=== PATIENT | male | born 1965 | race Caucasian/White ===

== ENCOUNTER 2016-06-26 05:32 | Day surgery (SDC) | payer MEDICAID ==
[~2016-06-26] VITALS: Ht 180.3 cm; Wt 100.5 kg
[~2016-06-26 05:32] MED LIST: LAMO100 PO; METF500T4 PO; SERT50TA12 PO; TRAZ-147 PO
[2016-06-26] MEDS ORDERED: SODIUM CHLORIDE 0.9% 1,000 ML IV ONE ×2 (05:53→06:00)
[2016-06-26 06:31] LABS: GLUCOSE,POINT OF CARE 117 MG/DL (70-110)
[2016-06-26] MEDS ORDERED: PROPOFOL 1% 20 ML VIAL IVP ONE (12:00)
== END 2016-06-26 11:00 | disposition home or self-care (01) ==
LOC: SURGERY 05:32
PROVIDERS: ATTEND Specialist
DX: Z12.11 Encounter for screening for malignant neoplasm of colon (principal); K64.8 Other hemorrhoids; K57.30 Diverticulosis of large intestine without perforation or abscess without bleeding; E11.9 Type 2 diabetes mellitus without complications; M54.9 Dorsalgia, unspecified; F31.9 Bipolar disorder, unspecified; E66.9 Obesity, unspecified; F17.210 Nicotine dependence, cigarettes, uncomplicated; Z98.890 Other specified postprocedural states; Z86.19 Personal history of other infectious and parasitic diseases
CPT/HCPCS: 45378; 82962; J2704; J7030; 99152

== ENCOUNTER 2017-07-02 08:21 | Emergency (ER) | payer MEDICAID, OTHER ==
[~2017-07-02] VITALS: Ht 180.3 cm; Wt 97.7 kg
[2017-07-02] MEDS ORDERED: LISI-660 PO (08:47)
[2017-07-02] MEDS ORDERED: GLIP5 PO (08:47)
[2017-07-02] MEDS ORDERED: LINA5TAB PO (08:47)
[2017-07-02] MEDS ORDERED: BACL10TA PO (08:47)
[2017-07-02] MEDS ORDERED: BUPR75 PO (08:47)
[2017-07-02] MEDS ORDERED: INSLAN SQ (08:47)
[2017-07-02 08:48] LABS: GLUCOSE,POINT OF CARE 113 MG/DL (70-110)
[2017-07-02 08:56] VITALS: BP 125/77
== END 2017-07-02 09:35 | disposition home or self-care (01) ==
LOC: EMS 08:21
DX: J18.0 Bronchopneumonia, unspecified organism (principal); E11.9 Type 2 diabetes mellitus without complications; I10 Essential (primary) hypertension; F17.210 Nicotine dependence, cigarettes, uncomplicated; Z79.4 Long term (current) use of insulin
CPT/HCPCS: 82962; 99283; 99406

== ENCOUNTER 2017-07-23 22:18 | Emergency (ER) | payer OTHER ==
[~2017-07-23] VITALS: Ht 180.3 cm; Wt 100.0 kg
[~2017-07-23 22:18] MED LIST changes: +BACL10TA PO; +BUPR75 PO; +GLIP5 PO; +INSLAN SQ; -LAMO100 PO; +LINA5TAB PO; +LISI-660 PO; -SERT50TA12 PO
[2017-07-23 22:33] LABS: GLUCOSE,POINT OF CARE 71 MG/DL (70-110)
[2017-07-23] MEDS ORDERED: DEXAMETHASONE SOD PHOS 4 MG/ML VIAL IM ONE (23:15)
[2017-07-23] MEDS ORDERED: IBUPROFEN 800 MG TABLET PO ONE (23:15)
[2017-07-24 01:00] VITALS: BP 130/74
== END 2017-07-24 01:02 | disposition home or self-care (01) ==
LOC: EMS 22:19
DX: J02.8 Acute pharyngitis due to other specified organisms (principal); E11.9 Type 2 diabetes mellitus without complications; F32.9 Major depressive disorder, single episode, unspecified; I10 Essential (primary) hypertension; F17.210 Nicotine dependence, cigarettes, uncomplicated; Z79.4 Long term (current) use of insulin
CPT/HCPCS: 82962; 87430; 96372; 99283; J1100

== ENCOUNTER 2017-07-25 20:02 | Emergency (ER) | payer OTHER ==
[~2017-07-25] VITALS: Ht 180.3 cm; Wt 97.7 kg
[~2017-07-25 20:02] MED LIST changes: -BACL10TA PO; -BUPR75 PO
[2017-07-25 20:12] VITALS: BP 115/80
[2017-07-25 20:12] LABS: GLUCOSE,POINT OF CARE 100 MG/DL (70-110)
== END 2017-07-25 20:25 | disposition home or self-care (01) ==
LOC: EMS 20:03
DX: J02.9 Acute pharyngitis, unspecified (principal); E11.9 Type 2 diabetes mellitus without complications; I10 Essential (primary) hypertension; F17.210 Nicotine dependence, cigarettes, uncomplicated; Z79.4 Long term (current) use of insulin
CPT/HCPCS: 82962; 99282; 99406

== ENCOUNTER 2017-10-16 20:03 | Emergency (ER) | payer OTHER ==
[~2017-10-16] VITALS: Ht 180.3 cm; Wt 100.0 kg
[~2017-10-16 20:03] MED LIST changes: -METF500T4 PO; +METF500T6 PO
[2017-10-16 20:33] LABS: GLUCOSE,POINT OF CARE 110 MG/DL (70-110)
[2017-10-16] MEDS ORDERED: LAMO5TAB3 PO (20:38)
[2017-10-16] MEDS ORDERED: BUPR100SR PO (20:38)
[2017-10-16] MEDS ORDERED: ATOR40TA28 PO (20:38)
[2017-10-16] MEDS ORDERED: GABA-531 PO (20:38)
[2017-10-16 22:12] VITALS: BP 106/78
== END 2017-10-16 22:12 | disposition home or self-care (01) ==
LOC: EMS 20:04
DX: F41.9 Anxiety disorder, unspecified (principal); F32.9 Major depressive disorder, single episode, unspecified; M25.521 Pain in right elbow; E11.9 Type 2 diabetes mellitus without complications; I10 Essential (primary) hypertension; E78.00 Pure hypercholesterolemia, unspecified; F17.210 Nicotine dependence, cigarettes, uncomplicated; Z79.84 Long term (current) use of oral hypoglycemic drugs
CPT/HCPCS: 99284; 99406